=== PATIENT | female | born 1990 | race Caucasian/White ===

== ENCOUNTER 2018-04-06 08:01 | Outpatient (CLI) | payer OTHER ==
--- NOTE | 2018-04-06 08:39 | ULT ---
SONOGRAM RIGHT BREAST LIMITED: Date: 04/06/18 HISTORY: Right breast lump. FINDINGS: Sonographic evaluation of the inferior aspect of the right breast and the remainder of the right enrique st shows dense fibroglandular tissue. No solid or cystic masses. IMPRESSION: BIRADS Category 2 - Benign findings. No significant abnormalities are demonstrated sonographically. POS: PIPPA
== END 2018-04-06 08:02 | disposition home or self-care (01) ==
LOC: BICULT 08:01
PROVIDERS: ATTEND Student in an Organized Health Care Education/Training Program
DX: N63.10 Unspecified lump in the right breast, unspecified quadrant (principal)